=== PATIENT | male | born 2000 | race African-American/Black ===

== ENCOUNTER 2020-12-14 23:41 | Emergency (ER) | payer OTHER ==
[~2020-12-14] VITALS: Ht 177.8 cm; Wt 82.5 kg
[2020-12-15] MEDS ORDERED: NS 1,000 ML IV ONE (00:15)
[2020-12-15 00:25] LABS: BASO # 0.1 10^3/uL (0.0-0.2); BASO % 0.7 % (0.0-1.0); EOS # 0.6 10^3/uL (0.0-0.5); EOS % 6.3 % (0.0-3.0); HEMATOCRIT 44.5 % (42.0-52.0); HEMOGLOBIN 14.4 g/dl (13.5-17.5); LYMPH # 1.9 10^3/uL (1.5-5.0); MEAN CORPUSCULAR HGB CONC 32.4 g/dl (32.0-36.5); MEAN CORPUSCULAR VOLUME 83.5 fl (80.0-96.0); MONO # 0.7 10^3/uL (0.0-0.8); MONO % 7.1 % (2.0-8.0); NEUTROPHILS # 6.6 10^3/uL (1.5-8.5); NEUTROPHILS % 66.5 % (36.0-66.0); PLATELET COUNT, AUTOMATED 292 10^3/uL (150-450); RED BLOOD COUNT 5.33 10^6/uL (4.30-6.10)
[2020-12-15] MEDS ORDERED: KETOROLAC 30 MG/ML 1ML VIAL IV ONE (00:30)
[2020-12-15] MEDS ORDERED: KETO10TAB PO (01:25)
[2020-12-15 01:35] VITALS: BP 124/86
== END 2020-12-15 01:37 | disposition home or self-care (01) ==
LOC: M ED 23:41
DX: S29.011A Strain of muscle and tendon of front wall of thorax, initial encounter (principal); X50.0XXA Overexertion from strenuous movement or load, initial encounter; Y92.9 Unspecified place or not applicable; Y93.89 Activity, other specified; Y99.9 Unspecified external cause status
CPT/HCPCS: 80047; 82550; 85025; 96361; 96374; 99284; J1885

== ENCOUNTER 2021-12-20 13:36 | Emergency (ER) | payer OTHER ==
[~2021-12-20] VITALS: Ht 180.3 cm; Wt 86.4 kg
[~2021-12-20 13:36] MED LIST: KETO10TAB PO
[2021-12-20 13:41] VITALS: BP 156/79
== END 2021-12-20 14:53 | disposition home or self-care (01) ==
LOC: M ED 13:36
DX: S62.644A Nondisplaced fracture of proximal phalanx of right ring finger, initial encounter for closed fracture (principal); X58.XXXA Exposure to other specified factors, initial encounter; Y92.9 Unspecified place or not applicable; Y93.9 Activity, unspecified; Y99.9 Unspecified external cause status

== ENCOUNTER 2022-11-24 17:52 | Emergency (ER) | payer OTHER ==
[~2022-11-24] VITALS: Ht 180.3 cm; Wt 91.5 kg
[2022-11-24 22:43] VITALS: BP 125/65
== END 2022-11-24 22:43 | disposition home or self-care (01) ==
LOC: M ED 17:52
DX: R19.03 Right lower quadrant abdominal swelling, mass and lump (principal); D17.5 Benign lipomatous neoplasm of intra-abdominal organs

== ENCOUNTER 2025-08-19 23:46 | Emergency (ER) | payer OTHER ==
[~2025-08-19] VITALS: Ht 180.3 cm; Wt 91.1 kg
[2025-08-20 04:32] LABS: BASO # 0.1 10^3/uL (0.0-0.2); BASO % 0.8 % (0.0-1.0); EOS # 0.7 10^3/uL (0.0-0.5); EOS % 7.4 % (0.0-3.0); LYMPH # 2.4 10^3/uL (1.5-5.0); LYMPH % 25.5 % (24.0-44.0); MONO # 1.2 10^3/uL (0.0-0.8); MONO % 12.1 % (2.0-8.0); NEUTROPHILS # 5.2 10^3/uL (1.5-8.5); NEUTROPHILS % 54.0 % (36.0-66.0); PLATELET COUNT, AUTOMATED 223 10^3/uL (150-450)
[2025-08-20 04:55] LABS: CALCIUM LEVEL 9.4 MG/DL (8.5-10.1); CARBON DIOXIDE LEVEL 27.0 MMOL/L (20-31); CHLORIDE LEVEL 105.0 MMOL/L (98-107); CREATININE FOR GFR 1.23 MG/DL (0.70-1.30); GLOMERULAR FILTRATION RATE 83.0 (>60); POTASSIUM SERUM 4.1 MMOL/L (3.5-5.1); SODIUM LEVEL 143.0 MMOL/L (136-145)
[2025-08-20 06:19] VITALS: BP 140/81; O2SAT 99
[2025-08-20] MEDS ORDERED: MIRA3350 PO (06:21)
[2025-08-20 06:27] VITALS: TEMP 96.7
== END 2025-08-20 06:28 | disposition home or self-care (01) ==
LOC: M ED 23:46
DX: K92.2 Gastrointestinal hemorrhage, unspecified (principal)